=== PATIENT | male | born 1990 | race Caucasian/White ===

== ENCOUNTER 2018-11-17 10:21 | Emergency (ER) | payer OTHER, MEDICAID, SELFPAY ==
[2018-11-17 10:24] VITALS: BP 133/89; PULSE 87; RESP 18; TEMP 36.2; O2SAT 100
[2018-11-17] MEDS: ONDANSETRON 4 MG/2 ML INJ IV (11:48)
[2018-11-17] MEDS: SODIUM CHLORIDE 0.9% 1,000 ML 1000 ML IV ×2 (11:48→13:19)
[2018-11-17 12:01] LABS: Hematocrit 45.6 % (41-53); Hemoglobin 15.5 g/dL (13.5-17.5); Mean Corpuscular HGB Conc 34.1 % (30-36); Mean Corpuscular Hemoglobin 32.1 PG (26-34); Mean Corpuscular Volume 94.2 fL (80-100); Platelet Count 178 X10^3/uL (150-400); Red Blood Cell Count 4.84 X10^6/uL (4.5-5.9); White Blood Cell Count 8.2 X10^3/uL (4.5-11.0)
[2018-11-17 12:05] LABS: INR 1.1 (0.9-1.3); Prothrombin Time 12.4 SECONDS (10.1-12.7)
[2018-11-17 12:07] LABS: PTT Partial Thromboplastin Tim 34 SECONDS (26.4-36.2)
[2018-11-17 12:08] LABS: Add Manual Diff / Slide Review YES
[2018-11-17 12:11] LABS: Alanine Aminotransferase 25 IU/L (21-72); Albumin 4.7 g/dL (3.5-5.0); Albumin Globulin Ratio 1.6 (1.0-2.8); Alkaline Phosphatase 42 U/L (38-126); Aspartate Aminotransferase 28 IU/L (17-59); BUN Creatinine Ratio 17.5 (6-22); Bilirubin Total 1.1 mg/dL (0.2-1.3); Blood Urea Nitrogen 14 mg/dL (9-20); Calcium 9.5 mg/dL (8.4-10.2); Carbon Dioxide 27 mmol/L (22-32); Chloride 98 mmol/L (98-107); Estimated Glomerular Filt Rate > 60.0 mL/min (>60); Glucose 91 mg/dL (70-100); HEMOLYSIS 19 (0-50); Lipase 49 U/L (23-300); Potassium 4.1 mmol/L (3.4-5.1); Sodium 136 mmol/L (137-145); Total Protein 7.7 g/dL (6.3-8.2)
--- NOTE | 2018-11-17 12:16 | ED_ITS ---
HPI - Abdominal Pain <[facility] - Last Filed: 11/17/18 14:48> General Chief Complaint: Abdominal Pain Stated Complaint: Stomach pain,weakness in legs,vomiting Time Seen by Provider: 11/17/18 12:05 Source: patient Mode of arrival: ambulatory Limitations: no limitations History of Present Illness HPI narrative: Patient is a current smoker 27-year-old male with history of appendectomy who presents with a chief complaint of stomach pain on and off for about a month. He states he has had increased bowel movements, gas, generalized abdominal discomfort for 1 month. He states that 2 days ago he had an increase in nausea and vomiting, which prompted his emergency department v isit today. He denies any dysuria urgency or frequency. He denies any constipation or diarrhea or blood in his stool. He states that sometimes his abdominal pain feels better after he eats, though not consistently. He states that his pain is mostly epigastric and left upper quadrant. He denies any significant alcohol use. He denies any fevers, chest pain, cough, shortness of breath. Related Data Previous Rx's Medication Instructions Recorded ondansetron 4 mg PO TID-QID PRN #20 tab 11/17/18 Allergies Allergy/AdvReac Type Severity Reaction Status Date / Time No Known Drug Allergies Allergy Verified 11/17/18 10:28 Review of Systems <ONEIL Gomez - Last Filed: 11/17/18 14:48> Review of Systems GENERAL: Denies chills, fatigue, malaise, fever, sweats. HEENT: Denies sinus pain, ear pain, sore throat, difficulty swallowing, dizziness. RESPIRATORY: Denies dyspnea, cough, wheezing, hemoptysis, sputum. CARDIOVASCULAR: Denies chest pain, palpitations, orthopnea, edema, GASTROINTESTINAL: See HPI : Denies dysuria, frequency, incontinence, hematuria, urinary retention. MUSCULOSKELETAL: denies weakness, joint pain, or bony pain SKIN: Denies rash, skin lesions, or other NEUROLOGIC: Denies weakness, headache, numbness, change in speech, confusion, seizures, incoordination. PSYCHIATRIC: No concerning psychosocial issues. 12 point review of systems is negative except for those stated above PFSH <[facility] Last Filed: 11/17/18 14:48> Surgical History History of appendectomy (Acute) Social History Smoking Status: Current some day smoker Social History Smoking Status: Current some day smoker Exam <WALTER Gomez-BC - Last Filed: 11/17/18 14:48> Narrative Exam Narrative: GENERAL: This is a well-nourished, well-developed patient, lying on stretcher in no acute distress HEAD: Atraumatic. Normocephalic. No temporal or scalp tenderness. EYES: Pupils equal round and reactive. Extraocular motions intact. No scleral icterus. No injection or drainage. ENT: Nose without bleeding, purulent drainage or septal hematoma. Throat without erythema, tonsillar hypertrophy or exudate. Uvula midline. Airway patent. NECK: Trachea midline. No JVD or lymphadenopathy. Supple, nontender, no meningeal signs. CARDIOVASCULAR: Regular rate and rhythm without murmurs, gallops, or rubs. RESPIRATORY: Clear to auscultation. Breath sounds equal bilaterally. No wheezes, rales, or rhonchi. No cough. No increased respiratory effort. No stridor or accessory muscle use. GASTROINTESTINAL: Abdomen soft, nondistended. No hepato-splenomegaly, or pa lpable masses. No guarding. Active bowel sounds all 4 quadrants. Diffuse tenderness epigastric and left upper quadrant area. Negative Schreiber sign. Nonrigid abdomen. No palpable pulsatile mass. EXTREMITIES: No clubbing, cyanosis, or edema. No joint tenderness, effusion, or edema noted. BACK: Nontender without deformity or crepitance. No flank tenderness. NEURO: AOx3. SKIN: No rash or erythema. Initial Vital Signs Initial Vital Signs: Vital Signs Temperature 97.1 F L 11/17/18 10:24 Pulse Rate 87 11/17/18 10:24 Respiratory Rate 18 11/17/18 10:24 Blood Pressure 133/89 11/17/18 10:24 Pulse Oximetry 100 11/17/18 10:24 <Hayley Dominguez DO - Last Filed: 11/17/18 19:13> Initial Vital Signs Initial Vital Signs: Vital Signs Temperature 97.1 F L 11/17/18 10:24 Pulse Rate 87 11/17/18 10:24 Respiratory Rate 18 11/17/18 10:24 Blood Pressure 133/89 11/17/18 10:24 Pulse Oximetry 100 11/17/18 10:24 Course <Moon Cazares, [employer]-BC - Last Filed: 11/17/18 14:48> Course Narrative: I checked on the patient several times throughout his stay in the emergency department. His pain improved upon administration of a GI cocktail. He remained hemodynamically stable, afebrile and playing on his cell phone throughout his stay in the emergency department. Orders Ordered: ED Orders 11/17/18 11:41 Amylase Stat Complete Blood Count AUTO DIFF Stat Comprehensive Metabolic Panel Stat Lipase Stat Partial Thromboplastin Time Stat Pathologist Review (for CBC) Stat Prothrombin Time INR Stat 11/17/18 12:56 Urine Microscopic Stat Discontinued Medications Al Hydrox/Mg Hydrox/Simethicone 20 ml/ Lidocaine HCl 15 ml 0 ml PO NOW ONE Stop: 11/17/18 13:14 Last Admin: 11/17/18 13:19 Dose: 35 ml Sodium Chloride (Normal Saline 0.9%) 1,000 mls @ 1,000 mls/hr IV BOLUS ONE Stop: 11/17/18 12:20 Last Infusion: 11/17/18 12:57 Dose: 0 mls/hr Admin: 11/17/18 11:48 Dose: 1,000 mls/hr Sodium Chloride (Normal Saline 0.9%) 1,000 mls @ 1,000 mls/hr IV BOLUS ONE Stop: 11/17/18 14:12 Last Infusion: 11/17/18 14:33 Dose: 0 mls/hr Admin: 11/17/18 13:19 Dose: 1,000 mls/hr Ondansetron HCl (Zofran) 4 mg IV NOW ONE Stop: 11/17/18 11:21 Last Admin: 11/17/18 11:48 Dose: 4 mg Vital Signs - 8 hr 11/17/18 13:57 Pulse Rate 64 Respiratory Rate 16 Blood Pressure [Right Arm] 130/69 Pulse Oximetry 100 <Hayley Dominguez DO - Last Filed: 11/17/18 19:13> Orders Ordered: ED Orders 11/17/18 11:41 Amylase Stat Complete Blood Count AUTO DIFF Stat Comprehensive Metabolic Panel Stat Lipase Stat Partial Thromboplastin Time Stat Pathologist Review (for CBC) Stat Prothrombin Time INR Stat 11/17/18 12:56 Urine Microscopic Stat Discontinued Medications Al Hydrox/Mg Hydrox/Simethicone 20 ml/ Lidocaine HCl 15 ml 0 ml PO NOW ONE Stop: 11/17/18 13:14 Last Admin: 11/17/18 13:19 Dose: 35 ml Sodium Chloride (Normal Saline 0.9%) 1,000 mls @ 1,000 mls/hr IV BOLUS ONE Stop: 11/17/18 12:20 Last Infusion: 11/17/18 12:57 Dose: 0 mls/hr Admin: 11/17/18 11:48 Dose: 1,000 mls/hr Sodium Chloride (Normal Saline 0.9%) 1,000 mls @ 1,000 mls/hr IV BOLUS ONE Stop: 11/17/18 14:12 Last Infusion: 11/17/18 14:33 Dose: 0 mls/hr Admin: 11/17/18 13:19 Dose: 1,000 mls/hr Ondansetron HCl (Zofran) 4 mg IV NOW ONE Stop: 11/17/18 11:21 Last Admin: 11/17/18 11:48 Dose: 4 mg Vital Signs - 8 hr 11/17/18 13:57 Pulse Rate 64 Respiratory Rate 16 Blood Pressure [Right Arm] 130/69 Pulse Oximetry 100 MDM - Abdominal Pain <WALTER Gomez-BC - Last Filed: 11/17/18 14:48> Lab Data Result diagrams: 11/17/18 11:41 11/17/18 11:41 Lab Results 11/17/18 11/17/18 11/17/18 Range/Units 11:41 11:41 11:41 WBC 8.2 (4.5-11.0) X10^3/uL RBC 4.84 (4.5-5.9) X10^6/uL Hgb 15.5 (13.5-17.5) g/dL Hct 45.6 (41-53) % MCV 94.2 (80-100) fL MCH 32.1 (26-34) PG MCHC 34.1 (30-36) % RDW 13.0 (11.6-14.8) % Plt Count 178 (150-400) X10^3/uL Neut % (Auto) Not Reportable Lymph % (Auto) Not Reportable [place] % (Auto) Not Reportable Eos % (Auto) Not Reportable Baso % (Auto) Not Reportable Lymph # (Auto) Not Reportable [place] # (Auto) Not Reportable Baso # (Auto) Not Reportable Total Counted 100 Seg Neutrophils % 54.0 (38-70) % Lymphocytes % (Manual) 11.0 L (25-45) % Atypical Lymphs % 3.0 H ( - 0) % Monocytes % (Manual) 5.0 (2-11) % Eosinophils % (Manual) 27.0 H (2-4) % Neutrophils # (Manual) 4428 (0047-6389) /uL RBC Morphology Normal morphology PT 12.4 (10.1-12.7) SECONDS INR 1.1 (0.9-1.3) APTT 34 (26.4-36.2) SECONDS Sodium 136 L (137-145) mmol/L Potassium 4.1 (3.4-5.1) mmol/L Chloride 98 (98-107) mmol/L Carbon Dioxide 27 (22-32) mmol/L BUN 14 (9-20) mg/dL Creatinine 0.80 (0.66-1.25) mg/dL Estimated GFR > 60.0 (>60) mL/min BUN/Creatinine Ratio 17.5 (6-22) Glucose 91 (70-100) mg/dL Calcium 9.5 (8.4-10.2) mg/dL Total Bilirubin 1.1 (0.2-1.3) mg/dL AST 28 (17-59) IU/L ALT 25 (21-72) IU/L Alkaline Phosphatase 42 (38-126) U/L Total Protein 7.7 (6.3-8.2) g/dL Albumin 4.7 (3.5-5.0) g/dL Globulin 3.0 (1.7-4.1) g/dL Albumin/Globulin Ratio 1.6 (1.0-2.8) Amylase (30-110) U/L Lipase 49 (23-300) U/L Urine RBC (0-5/HPF) Urine WBC (0-5/HPF) Ur Squamous Epith Cells Urine Bacteria (None) Ur Culture Indicated? 11/17/18 11/17/18 Range/Units 11:41 12:56 WBC (4.5-11.0) X10^3/uL RBC (4.5-5.9) X10^6/uL Hgb (13.5-17.5) g/dL Hct (41-53) % MCV (80-100) fL MCH (26-34) PG MCHC (30-36) % RDW (11.6-14.8) % Plt Count (150-400) X10^3/uL Neut % (Auto) Lymph % (Auto) [place] % (Auto) Eos % (Auto) Baso % (Auto) Lymph # (Auto) [place] # (Auto) Baso # (Auto) Total Counted Seg Neutrophils % (38-70) % Lymphocytes % (Manual) (25-45) % Atypical Lymphs % ( - 0) % Monocytes % (Manual) (2-11) % Eosinophils % (Manual) (2-4) % Neutrophils # (Manual) (7034-9203) /uL RBC Morphology PT (10.1-12.7) SECONDS INR (0.9-1.3) APTT (26.4-36.2) SECONDS Sodium (137-145) mmol/L Potassium (3.4-5.1) mmol/L Chloride (98-107) mmol/L Carbon Dioxide (22-32) mmol/L BUN (9-20) mg/dL Creatinine (0.66-1.25) mg/dL Estimated GFR (>60) mL/min BUN/Creatinine Ratio (6-22) Glucose (70-100) mg/dL Calcium (8.4-10.2) mg/dL Total Bilirubin (0.2-1.3) mg/dL AST (17-59) IU/L ALT (21-72) IU/L Alkaline Phosphatase (38-126) U/L Total Protein (6.3-8.2) g/dL Albumin (3.5-5.0) g/dL Globulin (1.7-4.1) g/dL Albumin/Globulin Ratio (1.0-2.8) Amylase 85 (30-110) U/L Lipase (23-300) U/L Urine RBC None seen (0-5/HPF) Urine WBC 0-1/hpf (0-5/HPF) Ur Squamous Epith Cells 0-1 /hpf Urine Bacteria None seen (None) Ur Culture Indicated? Cult not indicated Point of care testing: Urine Dip Bedside Urine Glucose Negative Bedside Urine Bilirubin - Negative Bedside Urine Ketone +++ 80 Urine Specific [place] 1.020 Bedside Urine Occult Blood - Negative Bedside Urine pH 6.0 Bedside Urine Protein +/- 15 Bedside Urine Urobilinogen - Negative Bedside Urine Nitrite - Negative Bedside Urine Leukocytes - Negative Esterase MDM Narrative Medical decision making narrative: The patient is a 27-year-old male who presents with chief complaint of abdominal issues for 1 month. He has had some nausea and vomiting over the past 2 days. He was not observed to be vomiting in the emergency department. He was afebrile, did not have an elevated white blood cell count, was given fluid and had grossly normal labs. He improved with administration of a GI cocktail as well as Zofran. Given that he does not have an elevated white blood cell count, is afebrile and does not have an acute exam so he did not get imaging today. He is able to tolerate p.o. fluids prior to discharge and passed a p.o. trial. I discussed at length follow up with primary care provider. I discussed that his improvement with a GI cocktail indicates he might have some acid reflux going on, supported by the fact that it gets worse when he lays down. I discussed at length a low acid, low spice, low fried fatty food diet. Patient questions or concerns upon discharge. I offered a prescription of omeprazole, but he stated he would rather get it o [id number]. I did give him a prescription of Zofran. Discussed at length return precautions including inability keep down fluids, acute concerns. Patient no questions or concerns upon discharge. He is able to ambulate out of the emergency department with a steady gait. <Hayley Dominguez, DO - Last Filed: 11/17/18 19:13> Lab Data Lab Results 11/17/18 11/17/18 11/17/18 Range/Units 11:41 11:41 11:41 WBC 8.2 (4.5-11.0) X10^3/uL RBC 4.84 (4.5-5.9) X10^6/uL Hgb 15.5 (13.5-17.5) g/dL Hct 45.6 (41-53) % MCV 94.2 (80-100) fL MCH 32.1 (26-34) PG MCHC 34.1 (30-36) % RDW 13.0 (11.6-14.8) % Plt Count 178 (150-400) X10^3/uL Neut % (Auto) Not Reportable Lymph % (Auto) Not Reportable [place] % (Auto) Not Reportable Eos % (Auto) Not Reportable Baso % (Auto) Not Reportable Lymph # (Auto) Not Reportable [place] # (Auto) Not Reportable Baso # (Auto) Not Reportable Total Counted 100 Seg Neutrophils % 54.0 (38-70) % Lymphocytes % (Manual) 11.0 L (25-45) % Atypical Lymphs % 3.0 H ( - 0) % Monocytes % (Manual) 5.0 (2-11) % Eosinophils % (Manual) 27.0 H (2-4) % Neutrophils # (Manual) 4428 (7209-9204) /uL RBC Morphology Normal morphology PT 12.4 (10.1-12.7) SECONDS INR 1.1 (0.9-1.3) APTT 34 (26.4-36.2) SECONDS Sodium 136 L (137-145) mmol/L Potassium 4.1 (3.4-5.1) mmol/L Chloride 98 (98-107) mmol/L Carbon Dioxide 27 (22-32) mmol/L BUN 14 (9-20) mg/dL Creatinine 0.80 (0.66-1.25) mg/dL Estimated GFR > 60.0 (>60) mL/min BUN/Creatinine Ratio 17.5 (6-22) Glucose 91 (70-100) mg/dL Calcium 9.5 (8.4-10.2) mg/dL Total Bilirubin 1.1 (0.2-1.3) mg/dL AST 28 (17-59) IU/L ALT 25 (21-72) IU/L Alkaline Phosphatase 42 (38-126) U/L Total Protein 7.7 (6.3-8.2) g/dL Albumin 4.7 (3.5-5.0) g/dL Globulin 3.0 (1.7-4.1) g/dL Albumin/Globulin Ratio 1.6 (1.0-2.8) Amylase (30-110) U/L Lipase 49 (23-300) U/L Urine RBC (0-5/HPF) Urine WBC (0-5/HPF) Ur Squamous Epith Cells Urine Bacteria (None) Ur Culture Indicated? 11/17/18 11/17/18 Range/Units 11:41 12:56 WBC (4.5-11.0) X10^3/uL RBC (4.5-5.9) X10^6/uL Hgb (13.5-17.5) g/dL Hct (41-53) % MCV (80-100) fL MCH (26-34) PG MCHC (30-36) % RDW (11.6-14.8) % Plt Count (150-400) X10^3/uL Neut % (Auto) Lymph % (Auto) [place] % (Auto) Eos % (Auto) Baso % (Auto) Lymph # (Auto) [place] # (Auto) Baso # (Auto) Total Counted Seg Neutrophils % (38-70) % Lymphocytes % (Manual) (25-45) % Atypical Lymphs % ( - 0) % Monocytes % (Manual) (2-11) % Eosinophils % (Manual) (2-4) % Neutrophils # (Manual) (6283-6701) /uL RBC Morphology PT (10.1-12.7) SECONDS INR (0.9-1.3) APTT (26.4-36.2) SECONDS Sodium (137-145) mmol/L Potassium (3.4-5.1) mmol/L Chloride (98-107) mmol/L Carbon Dioxide (22-32) mmol/L BUN (9-20) mg/dL Creatinine (0.66-1.25) mg/dL Estimated GFR (>60) mL/min BUN/Creatinine Ratio (6-22) Glucose (70-100) mg/dL Calcium (8.4-10.2) mg/dL Total Bilirubin (0.2-1.3) mg/dL AST (17-59) IU/L ALT (21-72) IU/L Alkaline Phosphatase (38-126) U/L Total Protein (6.3-8.2) g/dL Albumin (3.5-5.0) g/dL Globulin (1.7-4.1) g/dL Albumin/Globulin Ratio (1.0-2.8) Amylase 85 (30-110) U/L Lipase (23-300) U/L Urine RBC None seen (0-5/HPF) Urine WBC 0-1/hpf (0-5/HPF) Ur Squamous Epith Cells 0-1 /hpf Urine Bacteria None seen (None) Ur Culture Indicated? Cult not indicated Point of care testing: Urine Dip Bedside Urine Glucose Negative Bedside Urine Bilirubin - Negative Bedside Urine Ketone +++ 80 Urine Specific [place] 1.020 Bedside Urine Occult Blood - Negative Bedside Urine pH 6.0 Bedside Urine Protein +/- 15 Bedside Urine Urobilinogen - Negative Bedside Urine Nitrite - Negative Bedside Urine Leukocytes - Negative Esterase Discharge Plan Departure Patient Disposition: Home Clinical Impression: Abdominal pain Qualifiers: Abdominal location: generalized Qualified Code(s): R10.84 - Generalized abdominal pain Discharge Date/Time: 11/17/18 14:35 Interventions: ED Discharge Assessment Last Done: 11/17/18 14:34 Instructions: DI for Gastroesophageal Reflux Disease (GERD), DI for Abdominal Pain-Adult, GERD Diet Activity Restrictions/Additional Instructions: Your abdominal pain improved with administration of an anti acid medication. You can do a trial of omeprazole which is available [id number] as well as eat a low acid, low coffee, GERD diet with a lack of deep fried foods and lack of spicy foods. Your lab work came back normal today. I am giving him medic ation that he can take if needed if you become nauseous and started vomiting. Please follow up with primary care provider in the next few days. Please come back to emergency department for any acute concerns including chest pain, shortness of breath or inability keep down fluids. Prescriptions: New ondansetron 4 mg tablet,disintegrating 4 mg PO TID-QID PRN (Reason: nausea and vomiting) Qty: 20 RF: 0 <Hayley Dominguez DO - Last Filed: 11/17/18 19:13> [facility] Attending Lynne Attestation: I was immediately available in the department for consultation. Documentation has been reviewed. I agree with assessment and plan.
[2018-11-17 12:30] LABS: Amylase 85 U/L (30-110)
[2018-11-17 12:37] LABS: Neutrophils Absolute Manual 4428 /uL (3000-5900); Total Cells Counted 100
[2018-11-17 12:38] LABS: RBC Morphology Normal Morphology
[2018-11-17 13:03] LABS: Bacteria Urine None Seen; RBC Urine None Seen (0-5/HPF)
[2018-11-17] MEDS: MAG HYDROX/ALUMINUM/SIMETH SUS 20 ML, LIDOCAINE VISCOUS 2% 15 ML PO (13:19)
[2018-11-17 13:20] LABS: Culture Indicated Urine Cult Not Indicated; Squamous Epithelial Cell Urine 0-1 /HPF; WBC Urine 0-1/HPF (0-5/HPF)
[2018-11-17 13:57] VITALS: BP 130/69; PULSE 64; RESP 16; O2SAT 100
== END 2018-11-17 14:35 | disposition home or self-care (01) ==
PROVIDERS: Emergency Medicine; Emergency Provider Nurse Practitioner Family
DX: R10.84 Generalized abdominal pain (principal)
CPT/HCPCS: 36591; 80053; 81003; 81015; 82150; 83690; 85025; 85610; 85730; 96361; 96374; 99283; 99284; J2405